=== PATIENT | male | born 1945 | race Caucasian/White ===

== ENCOUNTER → 2023-03-24 14:59 | Outpatient (REF) | payer MEDICARE, OTHER, SELFPAY | LOC: RAD 14:59 | PROVIDERS: ATTENDING PHYSICIAN Family Medicine | DX: I77.9 Disorder of arteries and arterioles, unspecified (principal); I65.22 Occlusion and stenosis of left carotid artery | CPT/HCPCS: 93880 ==

== ENCOUNTER → 2023-05-27 10:08 | Outpatient (REF) | payer MEDICARE, OTHER, SELFPAY ==
[2023-05-27 14:13] LABS: PSA, Total - Diagnostic 0.14 ng/ml (0.0-4.0)
== END ==
LOC: HWLAB 10:08
PROVIDERS: ATTENDING PHYSICIAN Urology; FAMILY PHYSICIAN Family Medicine
DX: C61 Malignant neoplasm of prostate (principal)
CPT/HCPCS: 36415; 84153

== ENCOUNTER → 2023-06-15 12:15 | Outpatient (REF) | payer MEDICARE, OTHER, SELFPAY | LOC: HWRAD 12:15 | PROVIDERS: ATTENDING PHYSICIAN Student in an Organized Health Care Education/Training Program | DX: R07.9 Chest pain, unspecified (principal) | CPT/HCPCS: 71046; 71120 ==

== ENCOUNTER 2023-07-22 16:27 | Emergency (ER) | payer MEDICARE, OTHER, SELFPAY ==
[2023-07-22] VITALS (8 sets, daily range): BP systolic 124–149; BP diastolic 77–89; PULSE 71–78; BMI 30.5
[2023-07-22 17:02] LABS: % Basophils 0.6 % (0-2); % Eosinophils 2.4 % (0-6); % Immature Granulocytes 0.1 % (0-0.5); % Lymphocytes 22.3 % (20.5-51.1); % Monocytes 9.7 % (1.7-9.3); % Neutrophils 64.9 % (42.2-75.2); Absolute Eosinophils 0.2 10^3/uL (0-0.7); Absolute Lymphocytes 1.6 10^3/uL (1.2-3.4); Absolute Monocytes 0.7 10^3/uL (0.1-0.6); Absolute Neutrophils 4.6 10^3/uL (1.4-6.5); Hematocrit 46.6 % (39.0-52.0); Hemoglobin 16.1 g/dL (13.0-18.0); Mean Corp Hgb Conc. 34.5 g/dL (33.0-37.0); Mean Corpuscular Volume 95.5 fL (80.0-94.0); Mean Platelet Volume 9.3 fL (7.4-10.4); Nucleated Red Blood Cells % 0 % (-); Platelet Count 240 10^3/uL (130-400); Red Blood Cell Count 4.88 10^6/uL (4.70-6.10); Red Cell Dist. Width 12.3 % (11.5-14.5); White Blood Cell Count 7.1 10^3/uL (4.8-10.8)
[2023-07-22 17:15] LABS: ALT (SGPT) 19 U/L (0-50); AST (SGOT) 22 U/L (17-59); Albumin 4.2 g/dl (3.5-5.0); Alkaline Phosphatase 90 U/L (38-126); Blood Urea Nitrogen 17 mg/dl (9-20); Calcium 9.3 mg/dl (8.4-10.2); Carbon Dioxide 28 mmol/L (22-30); Chloride 104 mmol/L (98-107); Glucose 93 mg/dl (70-99); Potassium 4.8 mmol/L (3.5-5.1); Sodium 139 mmol/L (135-145); Total Bilirubin 0.6 mg/dl (0.2-1.3); Total Protein 6.7 g/dl (6.3-8.2); eGFR > 60.00
--- NOTE | 2023-07-22 18:33 | ED.GENMED ---
History of Present Illness
General
Chief Complaint: Dizziness
Source: patient and spouse
Exam Limitations: none
Time Seen by Provider: 07/22/23 18:22
Nursing documentation reviewed up to this point in time: agreed with
Travel History
Have you had any contact with someone who has COVID-19?: No
Do you have any symptoms of coronavirus? Fever > 100 degrees, chills, cough, shortness of breath, sore throat, loss of taste or smell, muscle aches, or headache?: No
History of Present Illness
History of Present Illness:
Patient to ED with complaint of dizziness, fatigue, loss of appetite. Symptoms started 2 weeks ago. 1 week ago he fell from standing position. states his symptoms have been worse since. He is unsure if he hit his head. Denies fever/chills,
n/v/d. No cp/pressure, SOB, cough. No abdomnal pain. Denies headache, blurred vision. states she called PCP this AM and was referred to ED.
Past History
Past History
ED Past Medical History: HTN, Hypercholesterolemia and Psychiatric (PTSD)
ED Past Surgical History: Orthopedic (knee surgery) and Urological (Prostatectomy)
Social History
Tobacco: Non-smoker
Alcohol: None
Personal:
Living: with family
Review of Systems
Review of Systems
Allergies reviewed?: Yes
All Other Systems: ROS reviewed and negative except as documented in HPI and ROS
Constitutional: Reports fatigue
EENT: Reports no symptoms
Respiratory: Reports no symptoms
Cardiac: Reports no symptoms
ABD/GI: Reports anorexia
: Reports no symptoms
Musculoskeletal: Reports no symptoms
Skin: Reports no symptoms
Neurological: Reports dizzy and weakness
Psychiatric: Reports no symptoms
Phy Exam
General Physical Exam
General Presentation: well appearing and no apparent distress
General age: appears stated age
General Skin: warm and dry
General Habitus: normal
General Mental: alert
Cardiovascular Exam
Cardiovascular Exam: regular rate/rhythm and no edema
Pulmonary Exam
Pulmonary Exam: lungs clear and no respiratory distress
Gastrointestinal Exam
Gastrointestinal Exam: non tender, soft and no organomegaly
Neurological Exam
Neurological Exam: alert, oriented x3, CN II-XII intact, no motor deficits, no sensory deficits and speech normal
Musculoskeletal Exam
Musculoskeletal Exam: full ROM and neuro vasc intact
Skin Exam
Skin Exam: normal color, warm/dry and no rash
Psychiatric Exam
Psychiatric Exam: normal mood/affect
Course
Orders/Labs/Results
Orders:
Orders
07/22/23 16:39
Electrocardiogram (*1) Urgent
Reason for Study: Vertigo / Dizzy
07/22/23 16:40
EKG- Treatment ONCE
07/22/23 16:54
Complete Blood Count/With Diff Urgent
Comprehensive Metabolic Panel Urgent
07/22/23 18:33
CT Head W/o Iv Contrast Urgent
Comment:
Reason For Exam: confusion
Orthostatic VS- Treatment ONCE
07/22/23 18:35
Troponin I Urgent
07/22/23 19:10
Urinalysis Reflex To Culture Urgent
Date Specimen was Collected: 07/22/23
Time Specimen was Collected: 18:38
Abnormal Lab Results
07/22/23 07/22/23
16:54 19:10
MCV 95.5 H fL
(80.0-94.0)
MCH 33.0 H pg
(27.0-31.0)
Absolute Monos (auto) 0.7 H 10^3/uL
(0.1-0.6)
Monocytes % 9.7 H %
(1.7-9.3)
Urine Ketones Trace A
(Negative)
Urine Bilirubin 1+ A
(Negative)
07/22/23 16:54
07/22/23 16:54
Vital Signs
Initial and Last Documented VS:
Initial Vital Signs
Temp Pulse Resp BP Pulse Ox
98.4 F 77 18 127/77 94
07/22/23 16:37 07/22/23 16:37 07/22/23 16:37 07/22/23 16:37 07/22/23 16:37
Last Documented Vital Signs
Temp Pulse Resp BP Pulse Ox
98.4 F 77 18 135/82 94
07/22/23 16:37 07/22/23 16:37 07/22/23 16:37 07/22/23 20:00 07/22/23 20:15
*Radiology
Radiology exam reviewed: radiology read reviewed
*Pulse Oximetry
Patient hypoxic: no
*Critical Care Note
Total Time (30-74mins, 75-104mins- exclusive of procedures): Not Applicable
Update Note
Update Note:
Labs, CT discussed with patient and . No concerning findings on exam Ambulating with walker safely. WIll discharge home and he will follow up with PCP. States he is feeling hungry. Given instructions on s/s to return to ED and he is
agreeable to plan.
ED Attending Note
-
Portions of this chart may have been created with voice recognition software.� Occasional wrong word or��sound alike� substitutions may have occurred due to the inherent limitations of voice recognition software.
Discharge Plan
Departure
Patient Disposition: Home (Routine Discharge)
Date of Disposition: 07/22/23
Time of Disposition: 20:55
Patient with high blood pressure during this ER visit?: No
Condition: Good
Covid-19: Not Applicable
Discharge Problem:
Dizziness
Instructions: Dizziness
Referrals:
Kendra Allison, [Family Provider] - Follow up in 2-3 days
Activity Restrictions/Additional Instructions:
Please use your walker.
Interventions
Interventions:
*Risk Screen - Suicide Last Done: 07/22/23 18:18
*General Assessment Last Done: 07/22/23 18:18
*Neglect/Abuse Screening Last Done: 07/22/23 18:18
ED- Fall Risk Assessment Last Done: 07/22/23 18:18
*ED COVID-19 Vaccine History Last Done: 07/22/23 18:18
ED- Neurological Assessment Last Done: 07/22/23 18:18
ED- Cardiac Assessment Last Done: 07/22/23 18:18
ED Swallowing Screen Last Done: 07/22/23 20:48
Discharge Date and Time
Print Language: NORWEGIAN
[2023-07-22 19:05] LABS: Troponin I < 0.012 ng/ml
[2023-07-22 19:18] LABS: Urine Albumin Trace (Neg - Trace); Urine Bilirubin 1+ (Negative); Urine Character Clear (Clear); Urine Color Amber; Urine Glucose Negative (Negative); Urine Ketone Trace (Negative); Urine Leukocyte Negative (Negative); Urine Nitrite Negative (Negative); Urine Occult Blood Negative (Negative); Urine Specific Gravity 1.025 (<1.030); Urine Urobilinogen Negative (Neg - 1+)
== END 2023-07-22 21:07 | disposition home or self-care (01) ==
LOC: EMR 16:27
PROVIDERS: Emergency Medicine; Nurse Practitioner; EMERGENCY PHYSICIAN Emergency Medicine; FAMILY PHYSICIAN Family Medicine
DX: R42 Dizziness and giddiness (principal)
CPT/HCPCS: 99285; 70450; 80053; 81003; 84484; 85025; 93005

== ENCOUNTER 2023-08-09 17:43 | Observation (INO) | payer MEDICARE, OTHER, SELFPAY ==
[2023-08-09] VITALS (13 sets, daily range): BP systolic 113–153; BP diastolic 66–89; BMI 29.7
--- NOTE | 2023-08-09 10:35 | ED.GENMED ---
History of Present Illness
General
Chief Complaint: Fall
Source: patient and spouse
Exam Limitations: none
Time Seen by Provider: 08/09/23 10:19
Nursing documentation reviewed up to this point in time: agreed with
Travel History
Have you had any contact with someone who has COVID-19?: No
Do you have any symptoms of coronavirus? Fever > 100 degrees, chills, cough, shortness of breath, sore throat, loss of taste or smell, muscle aches, or headache?: No
History of Present Illness
History of Present Illness:
Patient is a 78-year-old male with history of dementia hypertension PTSD depression brought by for evaluation. reports patient has a history of frontal lobe dementia and she has noticed over the past couple weeks that he is shaky more
rigid more confused. He fell in the driveway on Tuesday and was assisted up by neighbors. She reports last night she heard him fall while she was upstairs and he was downstairs. She did not see this fall. He was on the floor she did assist him
up. She reports he is complaining of pain to the left buttocks and left thigh area. She reports he is not able to really get around now and walk up steps because the pain in general is getting more confused more shaky.
She does not feel that she can take at home.
She is unsure if he hit his head because she did not when this fall. He is on blood thinners. [facility] but she is looking for more local neurologist.
Past History
Past History
ED Past Medical History: HTN, Hypercholesterolemia and Psychiatric (PTSD)
ED Past Surgical History: Orthopedic (knee surgery) and Urological (Prostatectomy)
Social History
Tobacco: Non-smoker
Alcohol: None
Personal:
Living: with family
Review of Systems
Review of Systems
Allergies reviewed?: Yes
Other source history: family
All Other Systems: ROS reviewed and negative except as documented in HPI and ROS
Constitutional: Reports no symptoms; Denies fever, fatigue or chills
Respiratory: Reports no symptoms
Cardiac: Reports no symptoms
ABD/GI: Reports no symptoms
Musculoskeletal: Reports other (left thigh /hip pain)
Skin: Reports no symptoms
Neurological: Reports no symptoms
Psychiatric: Reports no symptoms
Phy Exam
General Physical Exam
General Presentation: no apparent distress
General age: appears stated age
General Skin: warm and dry
General Habitus: normal
General Mental: alert
General Hydration: appears well hydrated
Cardiovascular Exam
Cardiovascular Exam: regular rate/rhythm, no murmur and normal peripheral pulses
Pulmonary Exam
Pulmonary Exam: lungs clear and no respiratory distress
Neurological Exam
Neurological Exam: alert and oriented x3
Musculoskeletal Exam
Musculoskeletal Exam: full ROM and other (Normal inspection of bilateral extremities full range of motion to left hip no swelling or redness no bruising no obvious tender on exam no bony cervical tenderness)
Skin Exam
Skin Exam: normal color and warm/dry
Psychiatric Exam
Psychiatric Exam: normal mood/affect
Course
Orders/Labs/Results
Orders:
Orders
08/09/23 10:30
Hip, Left 2-3 Views [CR Hip - LT w/wo Pel 2-3 Vw*] Urgent
Comment:
Reason For Exam: trauma pain
Include a pelvis x-ray?: Yes
08/09/23 10:32
CT Head W/o Iv Contrast Urgent
Comment:
Reason For Exam: trauma
08/09/23 10:38
Complete Blood Count/With Diff Urgent
Comprehensive Metabolic Panel Urgent
08/09/23 12:07
CT Pelvis W/o Iv Contrast Urgent
Comment:
Reason For Exam: trauma left hip pain rule out pelvic fx
08/09/23 12:47
Urinalysis Reflex To Culture Urgent
Date Specimen was Collected: 08/09/23
Time Specimen was Collected: 12:45
Urine Microscopic Reflex Cult Urgent
08/09/23 13:36
Electrocardiogram (*1) Stat
Reason for Study: Other
Other Reason for Exam: chest pain
EKG- Treatment ONCE
Abnormal Lab Results
08/09/23 08/09/23
10:38 12:47
MCH 32.2 H pg
(27.0-31.0)
Absolute Lymphs (auto) 1.1 L 10^3/uL
(1.2-3.4)
Absolute Monos (auto) 0.7 H 10^3/uL
(0.1-0.6)
Lymphocytes % 14.4 L %
(20.5-51.1)
Monocytes % 9.5 H %
(1.7-9.3)
Urine Bilirubin 1+ A
(Negative)
Leukocyte Esterase Rfl Trace A
(Negative)
08/09/23 10:38
08/09/23 10:38
Vital Signs
Initial and Last Documented VS:
Initial Vital Signs
Temp Pulse Resp BP Pulse Ox
97.4 F 79 20 129/73 95
08/09/23 10:13 08/09/23 10:13 08/09/23 10:13 08/09/23 10:13 08/09/23 10:13
Last Documented Vital Signs
Temp Pulse Resp BP Pulse Ox
97.4 F 79 20 116/66 93
08/09/23 10:13 08/09/23 10:13 08/09/23 10:13 08/09/23 14:00 08/09/23 14:15
MDM/Problems Addressed
Differential Diagnosis Includes:
Not limited to hip fracture pelvis fracture weakness, dehydration anemia UTI
MDM/Problems Addressed:
Patient is a 78-year-old male normally seen and treated by the NH with history dementia brought by for evaluation of increasing weakness frequent falls. Patient's reports patient is very shaky no diagnosis of Parkinson's however she was
looking for more local neurologist to further evaluate his shakiness. He is very unsteady and unable to get around at home now. She is not able to care for him because of this. She reports he can barely walk. He fell and complains of left hip
pain. No obvious findings on CAT scan or x-ray. No obvious head injury however with dementia CAT scan was done and negative. He is not on blood thinners. Will admit for further evaluation and workup for weakness and shakiness possible neuro eval
and PT . may need placement.
Chronic conditions affecting care:
Dementia
*Radiology
Radiology exam reviewed: radiology read reviewed
*Pulse Oximetry
Patient hypoxic: no
*Critical Care Note
Total Time (30-74mins, 75-104mins- exclusive of procedures): Not Applicable
ED Attending Note
-
Portions of this chart may have been created with voice recognition software.� Occasional wrong word or��sound alike� substitutions may have occurred due to the inherent limitations of voice recognition software.
Discharge Plan
Departure
Patient Disposition: Admit
Date of Disposition: 08/09/23
Time of Disposition: 13:45
Admit to: Med/Surg
Admit to doctor: hosptialist
Presentation/result/management discussed w/ accepting MD/DO: Hospitalist
Patient with high blood pressure during this ER visit?: No
Condition: Fair
Covid-19: Not Applicable
Discharge Problem:
Ambulatory dysfunction
Prescriptions:
No Action
atorvastatin 10 mg tablet
10 mg PO DAILY
bupropion HCl [Wellbutrin SR] 150 mg Tablet Sustained-Release 12 Hr
450 mg PO DAILY
trazodone 50 mg Tablet
150 mg PO HS
cyanocobalamin (vitamin B-12) 1,000 mcg Tablet
1,000 mcg PO DAILY
valsartan 320 mg Tablet
160 mg PO DAILY
duloxetine [Cymbalta] 60 mg Capsule,Delayed Release(Dr/Ec)
60 mg PO DAILY
Referrals:
Dc Messina CRNP [Family Provider] -
Interventions
Interventions:
*Risk Screen - Suicide Last Done: 08/09/23 10:13
*General Assessment Last Done: 08/09/23 10:13
*Neglect/Abuse Screening Last Done: 08/09/23 10:13
ED- Fall Risk Assessment Last Done: 08/09/23 10:37
*ED COVID-19 Vaccine History Last Done: 08/09/23 10:36
ED-Musculoskeletal Assessment Last Done: 08/09/23 10:36
ED- Neurological Assessment Last Done: 08/09/23 10:36
ED-Skin Assessment Last Done: 08/09/23 10:36
Discharge Date and Time
Print Language: DUTCH
[2023-08-09 10:51] LABS: % Basophils 0.5 % (0-2); % Eosinophils 1.4 % (0-6); % Immature Granulocytes 0.3 % (0-0.5); % Lymphocytes 14.4 % (20.5-51.1); % Monocytes 9.5 % (1.7-9.3); % Neutrophils 73.9 % (42.2-75.2); Absolute Eosinophils 0.1 10^3/uL (0-0.7); Absolute Lymphocytes 1.1 10^3/uL (1.2-3.4); Absolute Monocytes 0.7 10^3/uL (0.1-0.6); Absolute Neutrophils 5.7 10^3/uL (1.4-6.5); Hematocrit 45.1 % (39.0-52.0); Hemoglobin 15.5 g/dL (13.0-18.0); Mean Corp Hgb Conc. 34.4 g/dL (33.0-37.0); Mean Corpuscular Hgb 32.2 pg (27.0-31.0); Mean Corpuscular Volume 93.6 fL (80.0-94.0); Mean Platelet Volume 9.7 fL (7.4-10.4); Nucleated Red Blood Cells % 0 % (-); Platelet Count 236 10^3/uL (130-400); Red Blood Cell Count 4.82 10^6/uL (4.70-6.10); Red Cell Dist. Width 12.3 % (11.5-14.5); White Blood Cell Count 7.7 10^3/uL (4.8-10.8)
[2023-08-09 11:01] LABS: ALT (SGPT) 22 U/L (0-50); AST (SGOT) 23 U/L (17-59); Albumin 4.1 g/dl (3.5-5.0); Alkaline Phosphatase 87 U/L (38-126); Blood Urea Nitrogen 17 mg/dl (9-20); Calcium 9.3 mg/dl (8.4-10.2); Carbon Dioxide 28 mmol/L (22-30); Chloride 105 mmol/L (98-107); Glucose 99 mg/dl (70-99); Potassium 4.6 mmol/L (3.5-5.1); Sodium 140 mmol/L (135-145); Total Bilirubin 0.9 mg/dl (0.2-1.3); Total Protein 6.7 g/dl (6.3-8.2); eGFR > 60.00
[2023-08-09 13:00] LABS: Urine Albumin Trace (Neg - Trace); Urine Bilirubin 1+ (Negative); Urine Character Clear (Clear); Urine Color Yellow; Urine Glucose Negative (Negative); Urine Ketone Negative (Negative); Urine Leukocyte Trace (Negative); Urine Nitrite Negative (Negative); Urine Occult Blood Negative (Negative); Urine Specific Gravity 1.015 (<1.030); Urine Urobilinogen 1+ (Neg - 1+)
[2023-08-09 14:01] LABS: Urine Mucus Moderate
[2023-08-09 14:02] LABS: Urine Amorphous Seen; Urine Red Blood Cell 0-2 /HPF (0-2); Urine Squamous Cell 0-2 /LPF (Few); Urine White Cell 0-2 /HPF (0-5)
--- NOTE | 2023-08-09 14:29 | HPS.HSE ---
Addendum entered and electronically signed by Simley Brown MD 08/09/23 20:04:
Patient seen and examined independently--agree with plan set forth by Dr. Bella
GENERAL: well developed, well nourished, male in no apparent distress
HEENT: NC/AT--no O2 requirements
HEART: regular rate and rhythm, +S1, +S2
LUNGS : clear to auscultation bilaterally
ABDOM: soft, nontender, nondistended, + bowel sounds
EXT: no cyanosis, clubbing, or edema--NO pain to palpation over left hip bursa or low back
NEUROLOGIC: apparent dementia
Ambulatory dysfunction/falls with Chronic and worsening left leg pain/stiffness--unclear cause--OBS--standing tylenol for pain control--CT pelvis and hip x-ray without fractures--head CT without acute findings (positive for moderate diffuse cortical
and cerebellar atrophy)--check for infection, reversible causes (TSH, B12, folate, cultures)--PT/OT--brain MRI--neuro consult
Essential HTN -- cont valsartan
HLD --cont atorvastatin
PTSD --cont cymbalta/trazadone
B12 deficiency--cont B12 repletion
DVT prophylaxis
CODE STATUS -- DNR
DVT prophylaxis: SCD
CODE STATUS: DNR
Original Note:
Family Physician
-
Family Physician: BRITTANY Zimmer
Chief Complaint
-
Frequent falls
History of Present Illness
This is a 78-year-old male with past medical history of frontotemporal neurocognitive disorder, PTSD, mixed hyperlipidemia, essential hypertension, prostate cancer s/p prostatectomy with no radiations, who presented to ED with his on bedside
complaining of multiple falls decided about 2 years ago. Patient has had multiple episodes of syncope and dizziness in the past 2 years with no identifiable source. The states that patient finds it difficult to stand from a sitting position
and sometimes have to sleep on the floor because he is unable to pick himself up. She stated that patient has fallen twice in the past week but denies any head trauma. Patient reports pain 10/10 on the lateral left thigh that does not radiate. He
also admits mild lower back pain. Patient denies chest pain, shortness of breath, palpitations, dizziness, fever, chills, palpitations, nausea, and vomiting.
Medical History
Past Medical History
Past Medical History: Reports Dementia, HTN, Hypercholesterolemia and Psychiatric; Denies Arrhythmia
Additional Past Medical History:
Vitamin B12 deficiency, PTSD, anxiety
Past Surgical History: Reports None
Social History
Tobacco: Non-smoker
Alcohol: None
Drug: None
Personal:
Living: With Family
Employment: Retired ([employer])
Family History
Family History: Other (Mother had Alzheimer's disease)
Allergies / Home Medications
Allergies reflects when Allergies were last updated in [email or web address].
Home Medications with original date entered in [email or web address]
Allergy/Medication List:
Allergies
Allergy/AdvReac Type Severity Reaction Status Date / Time
No Known Allergies Allergy Verified 08/09/23 10:16
Review of Systems
-
History Source: Patient and Family
A 12 point ROS was completed and negative except as noted: No
Constitutional: Reports No Symptoms; Denies Fever or Fatigue
EENT: Reports No Symptoms
Respiratory: Reports No Symptoms; Denies Cough or Trouble Breathing
Cardiac: Reports No Symptoms; Denies Chest Pain, Palpitations or Syncope
Abdomen/GI: Reports No Symptoms; Denies Abdominal Pain, Nausea, Vomiting or Constipated
: Reports No Symptoms
Musculoskeletal: Reports No Symptoms
Skin: Reports No Symptoms
Endocrine: Reports No Symptoms
Psych: Reports Calm
Physical Exam
Vital Signs
Vital Signs
Temp Pulse Resp BP Pulse Ox
97.4 F 79 20 116/66 93
08/09/23 10:13 06/18/24 10:13 08/09/23 10:13 08/09/23 14:00 08/09/23 14:15
Physical Exam
General: No Apparent Distress, Comfortable and Conversant; No Respiratory Distress
HEENT: NormoCephalic and Moist mucous membranes
Respiratory: Clear and Non Labored Respirations; No Wheezes, Rales or Crackles
Cardiac: S1/S2 and Regular Rhythm; No Murmur, Rub or Peripheral Edema
GI: Soft, Non Distended and Normal Bowel Sounds
Skin: Warm
Neuro: Awake, Alert, Oriented, AO x 3 and Nonfocal/grossly intact
Psych: Calm, Intact Judgment/Insight and Other (Mildly forgetful)
Laboratory Results
-
08/09/23 10:38
08/09/23 10:38
Laboratory Results
Total Bilirubin 0.9 mg/dl (0.2-1.3) 08/09/23 10:38
AST 23 U/L (17-59) 08/09/23 10:38
ALT 22 U/L (0-50) 08/09/23 10:38
Alkaline Phosphatase 87 U/L (38-126) 08/09/23 10:38
Data Reviewed
-
Lab Data: Labs Reviewed by me and Discussed with Physician
Old Records: Reviewed
Impression/Plan
-
IMPRESSION:
This is a 78-year-old male with past medical history of frontotemporal neurocognitive disorder who was admitted for observation due to multiple falls. Recent fall was 2 days ago, reports no head trauma. Reports left leg pain and inability to raise
leg while ambulating
PLAN:
Ambulatory dysfunction:
-Admit to observation floor.
-Chronic and worsening left leg pain/stiffness.
-Neuro exam unremarkable.
-Mild left leg stiffness/weakness compared to right.
-No pain elicited on palpation of left trochanter, trochanteric bursitis less likely.
-TSH.
-Urinalysis.
-PT/OT.
-Brain MRI with and without contrast.
DVT prophylaxis: SCD
CODE STATUS: DNR
--- NOTE | 2023-08-09 16:38 | CM ---
Patient seen at bedside with physician. Patient lives with , not present and has a diagnosis of dementia. Patient states he is a [employer] and [facility] Mess[facility]. Patient is driving and complaining of frequent falls.
Patient to be admitted as an OBS/SHI patient. CM will review with patient status and form. Patient previously used the [facility] in [place]. CM will continue to follow for discharge planning needs.
PLan; home with VN vs SNF
[2023-08-09] MEDS: TYLENOL 650 MG PO (21:00)
[2023-08-09] MEDS: DESYREL 150 MG PO (21:01)
[2023-08-10] MEDS: TYLENOL 650 MG PO ×4 (03:32→21:37)
--- NOTE | 2023-08-10 03:48 | DOWNTIME ---
There was a [employer] Downtime on 08/10/2023 from 0100 to 08/10/2023 at 0337. Downtime documentation of patient's care, including medication administrations, has been reconciled in the electronic record per guidelines. Refer to the
patient's paper chart under the miscellaneous tab to see printed paper medication records and downtime forms.
[2023-08-10 06:39] LABS: Urine Albumin Negative (Neg - Trace); Urine Bilirubin Negative (Negative); Urine Character Clear (Clear); Urine Color Yellow; Urine Glucose Negative (Negative); Urine Ketone Negative (Negative); Urine Leukocyte Negative (Negative); Urine Nitrite Negative (Negative); Urine Occult Blood Negative (Negative); Urine Urobilinogen Negative (Neg - 1+)
[2023-08-10 07:00] VITALS: BP 113/68
[2023-08-10 07:04] LABS: % Basophils 0.5 % (0-2); % Eosinophils 3.3 % (0-6); % Immature Granulocytes 0.3 % (0-0.5); % Lymphocytes 26.6 % (20.5-51.1); % Monocytes 10.9 % (1.7-9.3); % Neutrophils 58.4 % (42.2-75.2); Absolute Eosinophils 0.2 10^3/uL (0-0.7); Absolute Lymphocytes 1.6 10^3/uL (1.2-3.4); Absolute Monocytes 0.7 10^3/uL (0.1-0.6); Absolute Neutrophils 3.6 10^3/uL (1.4-6.5); Hematocrit 41.6 % (39.0-52.0); Hemoglobin 14.1 g/dL (13.0-18.0); Mean Corp Hgb Conc. 33.9 g/dL (33.0-37.0); Mean Corpuscular Hgb 32.2 pg (27.0-31.0); Mean Platelet Volume 9.7 fL (7.4-10.4); Nucleated Red Blood Cells % 0 % (-); Platelet Count 213 10^3/uL (130-400); Red Blood Cell Count 4.38 10^6/uL (4.70-6.10); Red Cell Dist. Width 12.3 % (11.5-14.5); White Blood Cell Count 6.1 10^3/uL (4.8-10.8)
[2023-08-10 07:54] LABS: TSH Reflex To Free T4 1.82 uIU/ml (0.47-4.68)
[2023-08-10] MEDS: WELLBUTRIN SR (12 hour sustained release) 450 MG PO (09:06)
[2023-08-10] MEDS: LIPITOR 10 MG PO (09:06)
[2023-08-10] MEDS: DIOVAN 160 MG PO (09:07)
[2023-08-10] MEDS: VITAMIN B-12 1000 MCG PO (09:07)
[2023-08-10] MEDS: CYMBALTA DELAYED RELEASE 60 MG PO (09:07)
--- NOTE | 2023-08-10 09:20 | W.PN.HOSP.TC ---
Addendum entered and electronically signed by Smiley Brown MD 08/10/23 19:56:
Patient seen and examined independently--agree with plan set forth by Dr. Bella
GENERAL: well developed, well nourished, male in no apparent distress
HEENT: NC/AT--no O2 requirements
HEART: regular rate and rhythm, +S1, +S2
LUNGS : clear to auscultation bilaterally
ABDOM: soft, nontender, nondistended, + bowel sounds
EXT: no cyanosis, clubbing, or edema--NO pain to palpation over left hip bursa or low back
NEUROLOGIC: apparent dementia
Ambulatory dysfunction/falls with Chronic and worsening left leg pain/stiffness--unclear cause--standing tylenol for pain control not helping, will add standing motrin every 8 hours to alternate with tylenol--if no improvement, consider short
tapering steroid course--CT pelvis and hip x-ray without fractures--head CT without acute findings (positive for moderate diffuse cortical and cerebellar atrophy), brain MRI without acute findings but possibility of NPH raised--apprec neurology--
TSH, B12, folate all WNL--PT/OT--urinalysis clean, blood cultures pending
Essential HTN -- cont valsartan
HLD --cont atorvastatin
PTSD --cont cymbalta/trazadone
B12 deficiency--cont B12 repletion
DVT prophylaxis
CODE STATUS -- DNR
Spoke at length with patient's via phone, she is concerned that she is unable to take care of him at home and is thinking he may need a rehab--will discuss possible options with case management
Original Note:
Today's Communication/Plan
-
PT/OT with steps
Pain control
Assessment / Plan
Assessment / Plan
Assessment: Patient is a 78-year-old male with past medical history of frontotemporal dementia admitted for multiple falls.
Ambulatory dysfunction:
-Presentation with mostly left leg pain/stiffness of unclear cause, most likely muscle sprain.
-Pelvic CT 08/09/2023 with degenerative disease of L4-5 but no osseous abnormalities
-Head CT 08/09/2023 with no acute findings.
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
-Lumbar spine MRI 08/10/2023 reports no abnormal enhancement.
-Pain control with alternating Tylenol and Motrin.
-Neuro exam unremarkable, no evidence of parkinsonism, peripheral neuropathy.
-No pain elicited on palpation of left trochanter, trochanteric bursitis less likely.
-TSH WNL.
-Blood cultures
-Neuro following, recs appreciated.
-Urinalysis with cultures.
-PT/OT with steps.
DVT prophylaxis: SCD
CODE STATUS: DNR
Anticipated Discharge: 24 - 48 hours
Subjective/Interval History
-
Date of Service: August 10, 2023
Objective Data
-
Labs:
Laboratory Results
08/10/23
06:18
WBC 6.1
Hgb 14.1
Hct 41.6
Plt Count 213
Vital Signs:
Vital Signs
Temp Pulse Resp BP Pulse Ox
97.6 F 67 18 113/68 93
08/10/23 07:00 08/10/23 07:00 08/10/23 07:00 08/10/23 07:00 08/10/23 07:00
I&O
08/09/23 08/10/23 08/11/23
06:59 06:59 06:59
Intake Total 120 / 120
Output Total 600 / 600
Balance -480 / -480
Review of Systems
-
History Source: Patient
All other systems: Not reviewed unless documented
Constitutional: Reports No Symptoms; Denies Fever
EENT: Reports No Symptoms Reported
Respiratory: Reports No Symptoms; Denies Cough, Trouble Breathing or Wheezing
Cardiac: Reports No Symptoms; Denies Palpitations or Syncope
Abdomen/GI: Reports No Symptoms; Denies Abdominal Pain, Nausea, Vomiting or Diarrhea
Genitourinary: Reports No Symptoms
Musculoskeletal: Reports Muscle Pain; Denies Joint Pain, Edema or Muscle Weakness
Neuro: Reports No Symptoms; Denies Dizzy, Headache, Weakness or Ataxia
Physical Exam
-
General: Well Developed, No Apparent Distress and Comfortable
HEENT: Normocephalic, Atraumatic and Moist Mucous Membranes
Respiratory: Clear to Auscultation; Negative Wheezes, Rhonchi or Crackles
Cardiac: Regular Rhythm and S1/S2; Negative Murmur, Rub or Gallop
GI: Soft, Nontender, Nondistended and Normal Bowel Sounds; Negative Organomegaly
Rectal: Deferred by Provider
Musculoskeletal: No Clubbing, No Cyanosis, No Edema and Other (Left lateral thigh pain)
Skin: Warm; Negative Rash
Neuro: Awake, Alert, Oriented, AO x 3 and Nonfocal/Grossly Intact
Psych: Calm
Data Reviewed
-
CT Scan: Report Reviewed by me and Discussed with Physician
MRI: Report Reviewed by me, Discussed with Physician and Other (Brain and lumbar spine MRI)
Labs: Labs Reviewed by me and Discussed with Physician
Old Records: Reviewed
--- NOTE | 2023-08-10 09:41 | CM ---
Patient seen at bedside. CM called to patient and reviewed OBS/SHI form. Patient left on bedside table. Patient stated that patient has had a change in ability to do tasks like getting in bed or walking up steps. Patient states that
when patient doing steps he is unable to put weight on his leg. Patient does not have any DME at home. Patient lives in a 3 story home with bedroom on the 3rd floor. 2 steps to go anywhere. Patient indicated that she had not thought about
next steps. Patient 's plan is for discharge home. CM will continue to follow for discharge planning needs.
Plan; home with VN vs SNF; pending assessment
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
[2023-08-10 10:26] VITALS: BP 134/79; BP 139/81; BP 147/86; PULSE 79; PULSE 83
[2023-08-10 10:29] VITALS: BP 134/79; BP 139/81; BP 147/86; PULSE 79; PULSE 83
[2023-08-10 11:11] LABS: Blood Urea Nitrogen 21 mg/dl (9-20); Calcium 9.1 mg/dl (8.4-10.2); Carbon Dioxide 24 mmol/L (22-30); Chloride 107 mmol/L (98-107); Estimated Creatinine Clearance 54 ml/min; Glucose 134 mg/dl (70-99); Potassium 4.4 mmol/L (3.5-5.1); Sodium 140 mmol/L (135-145); eGFR > 60.00
[2023-08-10 12:15] LABS: Folate 8.1 ng/ml (2.76-20); Vitamin B12 819 pg/ml (239-931)
[2023-08-10 15:00] VITALS: BP 126/76; BP 133/84; BP 139/79; PULSE 76; PULSE 78; PULSE 79
[2023-08-10] MEDS: DESYREL 150 MG PO (21:38)
[2023-08-10 23:00] VITALS: BP 114/58
[2023-08-11 03:00] VITALS: BP 106/64; BP 116/67; BP 120/66; PULSE 71; PULSE 74; PULSE 78
[2023-08-11] MEDS: TYLENOL PO (03:00)
[2023-08-11 07:00] VITALS: BP 112/78
--- NOTE | 2023-08-11 08:16 | W.PN.HOSP.TC ---
Addendum entered and electronically signed by Smiley Brown MD 08/11/23 13:02:
Patient seen and examined independently--agree with plan set forth by Dr. Bella
GENERAL: well developed, well nourished, male in no apparent distress
HEENT: NC/AT--no O2 requirements
HEART: regular rate and rhythm, +S1, +S2
LUNGS : clear to auscultation bilaterally
ABDOM: soft, nontender, nondistended, + bowel sounds
EXT: no cyanosis, clubbing, or edema--NO pain to palpation over left hip bursa or low back
NEUROLOGIC: apparent dementia
Ambulatory dysfunction/falls with Chronic and worsening left leg pain/stiffness--unclear cause--standing tylenol/motrin for pain control--if no improvement, consider short tapering steroid course--CT pelvis and hip x-ray without fractures--head CT
without acute findings (positive for moderate diffuse cortical and cerebellar atrophy), brain MRI without acute findings but possibility of NPH raised--apprec neurology-- TSH, B12, folate all WNL--PT/OT--urinalysis clean, blood cultures NGTD
Essential HTN -- cont valsartan
HLD --cont atorvastatin
PTSD --cont cymbalta/trazadone
B12 deficiency--cont B12 repletion
DVT prophylaxis
CODE STATUS -- DNR
planning for d/c to SNF--pt evaluated by PT/OT and qualifies for SNF
Original Note:
Today's Communication/Plan
-
Continue PT/OT
Pain control
Discharge planning
Assessment / Plan
Assessment / Plan
Assessment: Patient is a 78-year-old male with past medical history of frontotemporal dementia admitted for multiple falls.
Ambulatory dysfunction:
-Presentation with mostly left leg pain/stiffness of unclear cause, most likely muscle sprain.
-Pelvic CT 08/09/2023 with degenerative disease of L4-5 but no osseous abnormalities
-Head CT 08/09/2023 with no acute findings.
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
-Lumbar spine MRI 08/10/2023 reports no abnormal enhancement.
-Pain control with alternating Tylenol and Motrin.
-Neuro exam unremarkable, no evidence of parkinsonism, peripheral neuropathy.
-No pain elicited on palpation of left trochanter, trochanteric bursitis less likely.
-TSH WNL.
-Blood cultures pending
-Neuro following, recs appreciated.
-Urinalysis clean.
-PT/OT with steps.
DVT prophylaxis: SCD
CODE STATUS: DNR
Anticipated Discharge: Today
Subjective/Interval History
-
Date of Service: August 11, 2023
Objective Data
-
Labs:
Laboratory Results
08/11/23
08:15
WBC Pending
Hgb Pending
Hct Pending
Plt Count Pending
Sodium Pending
Potassium Pending
Chloride Pending
Carbon Dioxide Pending
BUN Pending
Creatinine Pending
Glucose Pending
Calcium Pending
Vital Signs:
Vital Signs
Temp Pulse Resp BP Pulse Ox
97.7 F 72 16 112/78 94
08/11/23 07:00 08/11/23 07:00 08/11/23 07:00 08/11/23 07:00 08/11/23 07:00
I&O
08/10/23 08/11/23 08/12/23
06:59 06:59 06:59
Intake Total 120 / 120 300 / 300
Output Total 600 / 600 30 / 30
Balance -480 / -480 270 / 270
Review of Systems
-
History Source: Patient
All other systems: Not reviewed unless documented
Constitutional: Reports No Symptoms; Denies Fever
EENT: Reports No Symptoms Reported
Respiratory: Reports No Symptoms; Denies Cough, Trouble Breathing or Wheezing
Cardiac: Reports No Symptoms; Denies Palpitations or Syncope
Abdomen/GI: Reports No Symptoms; Denies Abdominal Pain, Nausea, Vomiting or Diarrhea
Genitourinary: Reports No Symptoms
Musculoskeletal: Reports Muscle Pain; Denies Joint Pain, Edema or Muscle Weakness
Neuro: Reports No Symptoms; Denies Dizzy, Headache, Weakness or Ataxia
Physical Exam
-
General: Well Developed, No Apparent Distress and Comfortable
HEENT: Normocephalic, Atraumatic and Moist Mucous Membranes
Respiratory: Clear to Auscultation; Negative Wheezes, Rhonchi or Crackles
Cardiac: Regular Rhythm and S1/S2; Negative Murmur, Rub or Gallop
GI: Soft, Nontender, Nondistended and Normal Bowel Sounds; Negative Organomegaly
Rectal: Deferred by Provider
Musculoskeletal: No Clubbing, No Cyanosis, No Edema and Other (Left lateral thigh pain)
Skin: Warm; Negative Rash
Neuro: Awake, Alert, Oriented, AO x 3 and Nonfocal/Grossly Intact
Psych: Calm
Data Reviewed
-
CT Scan: Report Reviewed by me and Discussed with Physician
MRI: Report Reviewed by me, Discussed with Physician and Other (Brain and lumbar spine MRI)
Labs: Labs Reviewed by me and Discussed with Physician
Old Records: Reviewed
[2023-08-11] MEDS: VITAMIN B-12 1000 MCG PO (08:26)
[2023-08-11] MEDS: WELLBUTRIN SR (12 hour sustained release) 450 MG PO (08:26)
[2023-08-11] MEDS: LIPITOR 10 MG PO (08:26)
[2023-08-11] MEDS: CYMBALTA DELAYED RELEASE 60 MG PO (08:27)
[2023-08-11] MEDS: DIOVAN 160 MG PO (08:27)
[2023-08-11] MEDS: TYLENOL 650 MG PO ×3 (08:27→21:07)
[2023-08-11 08:43] LABS: Hematocrit 42.5 % (39.0-52.0); Hemoglobin 14.5 g/dL (13.0-18.0); Mean Corp Hgb Conc. 34.1 g/dL (33.0-37.0); Mean Corpuscular Hgb 32.4 pg (27.0-31.0); Mean Corpuscular Volume 95.1 fL (80.0-94.0); Mean Platelet Volume 9.4 fL (7.4-10.4); Platelet Count 202 10^3/uL (130-400); Red Blood Cell Count 4.47 10^6/uL (4.70-6.10); Red Cell Dist. Width 12.4 % (11.5-14.5); White Blood Cell Count 5.9 10^3/uL (4.8-10.8)
[2023-08-11 08:56] LABS: Blood Urea Nitrogen 18 mg/dl (9-20); Calcium 8.6 mg/dl (8.4-10.2); Carbon Dioxide 28 mmol/L (22-30); Chloride 109 mmol/L (98-107); Estimated Creatinine Clearance 54 ml/min; Glucose 97 mg/dl (70-99); Sodium 142 mmol/L (135-145); eGFR > 60.00
[2023-08-11 09:25] LABS: Potassium 4.3 mmol/L (3.5-5.1)
--- NOTE | 2023-08-11 10:46 | W.PN.UPDATE ---
Addendum entered and electronically signed by Smiley Brown MD 08/11/23 13:04:
Patient seen and examined independently--agree with assessment as documented by Dr. Bella
Original Note:
Update Note
Progress Note Update
Pt has been assessed and qualifies for residential facility.
--- NOTE | 2023-08-11 12:46 | W.DCSUMMARY ---
Addendum entered and electronically signed by Smiley Brown MD 08/12/23 20:04:
actual discharge date was 08/12/23--discharge delayed due to available SNF bed
Addendum entered and electronically signed by Smiley Brown MD 08/11/23 14:38:
Fully read and agree with plan as set forth by Dr. Bella.
Nothing to add.
Original Note:
Discharge Summary
Discharge Data
Date of Admission: 08/09/23
Date of Discharge: 08/11/23
-
Pending Results: Yes
Additional Pending Results:
Blood cultures, urine cultures (no growth till date)
Hospital Course
Patient is a 78-year-old male with past medical history of presumed frontotemporal neurocognitive disorder, PTSD, mixed hyperlipidemia, essential hypertension, prostate cancers/p prostatectomy with no radiations, who presented to ED with his
on bedside complaining of multiple falls decided about 2 years ago. Patient and relays that this has been going on for more than 2 years and multiple workups has been done without any identifiable cause. He reports lateral thigh pain rated
10/10 does not radiate. While in the ED, patient received hip x-ray, head CT, and pelvic CT. His hip x-ray was remarkable for degenerative disc disease in the lower lumbar spine but no fractures or dislocations. Pelvic CT shows no acute osseous
abnormalities, but degenerative disc disease at L4-L5. His head CT showed no focal acute intracranial abnormalities, however, there is great diffuse cortical and cerebellar atrophy. Patient was then admitted to observation floor, and was treated
with pain medications.
While in the hospital, patient was seen in consultation with neurology, physical therapy and occasional therapy. Furthermore, patient received brain MRI, lumbar spine MRI. His brain MRI was remarkable for stable chronic lacunar infarct involving
right medial right thalamus but no intracranial abnormalities or acute infarcts. There was also stable moderate ventriculomegaly and some cortical atrophy. His lumbar spine MRI showed small protrusion and mild left narrowing of foramina in the
L1-L2 region, and a tiny posterior central disc protrusion at the L5-S1 region. However there is no significant central canal stenosis.
Patient was reassessed and certified appropriate for senior care facility. Patient is stable for discharge to SNF.
Discharge Plan
-
Patient Disposition: Fdc/SNF
Discharge Diagnosis/Procedures: Ambulatory dysfunction, worsening leg pain and stiffness,
Referrals:
Dc Messina CRNP [Family Provider] -
Prescriptions:
New
acetaminophen 325 mg Tablet
650 mg PO Q6H Qty: 0 0RF
ibuprofen 400 mg Tablet
400 mg PO Q8HPRN PRN (Reason: leg pain) Qty: 0 0RF
Continued
atorvastatin 10 mg tablet
10 mg PO DAILY
bupropion HCl [Wellbutrin SR] 150 mg Tablet Sustained-Release 12 Hr
450 mg PO DAILY
trazodone 50 mg Tablet
150 mg PO HS
cyanocobalamin (vitamin B-12) 1,000 mcg Tablet
1,000 mcg PO DAILY
valsartan 320 mg Tablet
160 mg PO DAILY
duloxetine [Cymbalta] 60 mg Capsule,Delayed Release(Dr/Ec)
60 mg PO DAILY
Discharge Orders:
Discharge Patient (As Directed); Ordered 08/11/23
Ordered By: Héctor Bella
Discharge Date and Time
Print Language: STATELESS
--- NOTE | 2023-08-11 14:11 | CM ---
Addendum entered by Joanna Yan 08/11/23 15:36:
no beds at [facility] or [facility]. [facility] accepted patient for waiver program pending bed. CM spoke with patient who requested CM send referrals to [facility] or [facility]. Physician updated and CM will continue to follow for
discharge planning needs.
Original Note:
Patient qualifies for [facility] waiver program. CM updated patient and reviewed OBS/SHI form. Patient referred to [facility] and [facility] the two local facilities that are accepting the waiver program following review of program with patient .
CM awaiting confirmation of bed availability at [facility] and will work with [facility] about auth. CM will continue to follow for discharge planning needs.
Plan; SNF
[2023-08-11 15:00] VITALS: BP 138/82
--- NOTE | 2023-08-11 15:42 | W.PN.UPDATE ---
Update Note
Progress Note Update
Spoke with case management who reports speaking with patient's who indicated that Patient neurologist stated the right diagnosis for patient is degenerative neurological disease with parkinsonism as opposed to frontotemporal neurocognitive
disorder previously reported.
[2023-08-11 19:07] LABS: Hepatitis C Antibody Negative (Negative)
[2023-08-11] MEDS: DESYREL 150 MG PO (21:08)
[2023-08-11 23:35] VITALS: BP 112/61
[2023-08-12] MEDS: TYLENOL PO (03:55)
[2023-08-12 07:00] VITALS: BP 106/62
--- NOTE | 2023-08-12 07:26 | W.PN.HOSP.TC ---
Addendum entered and electronically signed by Smiley Brown MD 08/12/23 20:03:
Patient seen and examined independently--agree with plan set forth by Dr. Bella
GENERAL: well developed, well nourished, male in no apparent distress
HEENT: NC/AT--no O2 requirements
HEART: regular rate and rhythm, +S1, +S2
LUNGS : clear to auscultation bilaterally
ABDOM: soft, nontender, nondistended, + bowel sounds
EXT: no cyanosis, clubbing, or edema--NO pain to palpation over left hip bursa or low back
NEUROLOGIC: apparent dementia
Ambulatory dysfunction/falls with Chronic and worsening left leg pain/stiffness--unclear cause--standing tylenol/motrin for pain control--if no improvement, consider short tapering steroid course--CT pelvis and hip x-ray without fractures--head CT
without acute findings (positive for moderate diffuse cortical and cerebellar atrophy), brain MRI without acute findings but possibility of NPH raised, not concerning per neuro--apprec neurology-- TSH, B12, folate all WNL--PT/OT--urinalysis clean,
blood cultures NGTD
Essential HTN -- cont valsartan
HLD --cont atorvastatin
PTSD --cont cymbalta/trazadone
B12 deficiency--cont B12 repletion
DVT prophylaxis
CODE STATUS -- DNR
d/c to SNF
Original Note:
Today's Communication/Plan
-
Pain control
Discharge to SNF
Assessment / Plan
Assessment / Plan
Assessment: Patient is a 78-year-old male with past medical history of frontotemporal dementia admitted for multiple falls.
Ambulatory dysfunction:
-Presentation with mostly left leg pain/stiffness of unclear cause, most likely muscle sprain.
-Pelvic CT 08/09/2023 with degenerative disease of L4-5 but no osseous abnormalities
-Head CT 08/09/2023 with no acute findings.
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
-Although patient has gait issues, ventricular size and angles does not meet criteria for NPH by neurology.
-Lumbar spine MRI 08/10/2023 reports no abnormal enhancement.
-Pain control with alternating Tylenol and Motrin.
-Neuro exam unremarkable, no evidence of parkinsonism, peripheral neuropathy.
-No pain elicited on palpation of left trochanter, trochanteric bursitis less likely.
-TSH WNL.
-Blood cultures pending
-Neuro following, recs appreciated.
-Urinalysis clean.
-PT/OT with steps.
-Discharge to SNF patient agreeable.
DVT prophylaxis: SCD
CODE STATUS: DNR
Anticipated Discharge: Today
Subjective/Interval History
-
Date of Service: August 12, 2023
Objective Data
-
Vital Signs:
T. Max in 24 hrs
08/11/23
23:35
Temp 97.4 F
Vital Signs
Temp Pulse Resp BP Pulse Ox
97.4 F 72 18 112/61 92
08/11/23 23:35 08/11/23 23:35 08/11/23 23:35 08/11/23 23:35 08/11/23 23:35
I&O
08/11/23 08/12/23 08/13/23
06:59 06:59 06:59
Intake Total 300 / 300 600 / 600
Output Total 30 / 30 200 / 200
Balance 270 / 270 400 / 400
Review of Systems
-
History Source: Patient
All other systems: Not reviewed unless documented
Constitutional: Reports No Symptoms; Denies Fever
EENT: Reports No Symptoms Reported
Respiratory: Reports No Symptoms; Denies Cough, Trouble Breathing or Wheezing
Cardiac: Reports No Symptoms; Denies Palpitations or Syncope
Abdomen/GI: Reports No Symptoms; Denies Abdominal Pain, Nausea, Vomiting or Diarrhea
Genitourinary: Reports No Symptoms
Musculoskeletal: Reports Muscle Pain; Denies Joint Pain, Edema or Muscle Weakness
Neuro: Reports No Symptoms; Denies Dizzy, Headache, Weakness or Ataxia
Physical Exam
-
General: Well Developed, No Apparent Distress and Comfortable
HEENT: Normocephalic, Atraumatic and Moist Mucous Membranes
Respiratory: Clear to Auscultation; Negative Wheezes, Rhonchi or Crackles
Cardiac: Regular Rhythm and S1/S2; Negative Murmur, Rub or Gallop
GI: Soft, Nontender, Nondistended and Normal Bowel Sounds; Negative Organomegaly
Rectal: Deferred by Provider
Musculoskeletal: No Clubbing, No Cyanosis, No Edema and Other (Left lateral thigh pain)
Skin: Warm; Negative Rash
Neuro: Awake, Alert, Oriented, AO x 3 and Nonfocal/Grossly Intact
Psych: Calm
Data Reviewed
-
CT Scan: Report Reviewed by me and Discussed with Physician
MRI: Report Reviewed by me, Discussed with Physician and Other (Brain and lumbar spine MRI)
Labs: Labs Reviewed by me and Discussed with Physician
Old Records: Reviewed
[2023-08-12] MEDS: LIPITOR 10 MG PO (08:45)
[2023-08-12] MEDS: WELLBUTRIN SR (12 hour sustained release) 450 MG PO (08:45)
[2023-08-12] MEDS: DIOVAN 160 MG PO (08:45)
[2023-08-12] MEDS: CYMBALTA DELAYED RELEASE 60 MG PO (08:46)
[2023-08-12] MEDS: TYLENOL 650 MG PO (08:46)
[2023-08-12] MEDS: VITAMIN B-12 1000 MCG PO (08:46)
[2023-08-12 09:52] VITALS: BP 133/88; PULSE 81
--- NOTE | 2023-08-12 09:54 | CM ---
Addendum entered by Joanna Yan 08/12/23 11:34:
Patient updated and requested CM to call Janell at [place] [phone] [phone] update provided.
Addendum entered by Joanna Yan 08/12/23 11:21:
Please call report to [phone] 112/ fax [phone]. CM updated and physician. CM will complete transportation forms
Original Note:
Patient accepted at [facility] and [facility] in admissions. Patient chose [place], CM updated admissions and kumar from [facility] pending auth. Patient for transfer to snf. CM will continue to follow for discharge planning
needs.
Plan; SNF; pending auth. may need ambulance.
[2023-08-12 14:55] VITALS: BP 132/80
== END 2023-08-12 15:31 ==
LOC: 3 WEST ACU 17:43
PROVIDERS: Nurse Practitioner; Student in an Organized Health Care Education/Training Program; ADMITTING PHYSICIAN Internal Medicine; CONSULT PHYSICIAN Student in an Organized Health Care Education/Training Program; EMERGENCY PHYSICIAN Emergency Medicine; FAMILY PHYSICIAN Registered Nurse
DX: R26.2 Difficulty in walking, not elsewhere classified (principal); M79.652 Pain in left thigh; M25.552 Pain in left hip; M79.605 Pain in left leg; M54.50 Low back pain, unspecified; R53.1 Weakness; F02.80 Dementia in other diseases classified elsewhere, unspecified severity, without behavioral disturbance, psychotic disturbance, mood disturbance, and anxiety; I10 Essential (primary) hypertension; G89.29 Other chronic pain; F43.10 Post-traumatic stress disorder, unspecified; G31.09 Other frontotemporal neurocognitive disorder; G93.89 Other specified disorders of brain; E78.00 Pure hypercholesterolemia, unspecified; R41.0 Disorientation, unspecified; R07.9 Chest pain, unspecified; E53.8 Deficiency of other specified B group vitamins; E78.5 Hyperlipidemia, unspecified; E78.2 Mixed hyperlipidemia; G31.9 Degenerative disease of nervous system, unspecified; M51.36 Other intervertebral disc degeneration, lumbar region; M50.30 Other cervical disc degeneration, unspecified cervical region; M48.061 Spinal stenosis, lumbar region without neurogenic claudication; Z66 Do not resuscitate; Z90.79 Acquired absence of other genital organ(s); Z85.46 Personal history of malignant neoplasm of prostate; Z79.01 Long term (current) use of anticoagulants; Z86.73 Personal history of transient ischemic attack (TIA), and cerebral infarction without residual deficits; Z82.3 Family history of stroke; Z82.0 Family history of epilepsy and other diseases of the nervous system
CPT/HCPCS: 70450; 70553; 72158; 72192; 73502; 80048; 80053; 81003; 81015; 82607; 82746; 84443; 85025; 85027; 86803; 87040; 87086; 93005; 97116; 97162; 97166; 97530; 99285; A9575; G0378

== ENCOUNTER 2023-09-01 21:50 | Emergency (ER) | payer MEDICARE, OTHER, SELFPAY ==
[2023-09-01 21:55] VITALS: BP 114/97
--- NOTE | 2023-09-01 22:31 | ED.GENMED ---
History of Present Illness
General
Chief Complaint: Fall
Source: patient, ambulance crew and other (Nursing )
Exam Limitations: dementia
Time Seen by Provider: 09/01/23 22:01
History of Present Illness
History of Present Illness:
This is a 78 year old male that comes in by ambulance with c/o fall. States that he was just reaching for his Cell phone and he fell out of bed. States that the nurses there are ganging up on him. Told that EMS states that he has fell more the just
the one time. Patient denies any fever, chills, chest pain, SOB, abd pain, nausea, vomiting, diarrhea, headache, dizziness, urinary burning.
Past History
Past History
ED Past Medical History: Cancer (Prostate), HTN, Hypercholesterolemia, Psychiatric (PTSD, Anxiety, Depression) and Other (Dementia, parkinson's)
ED Past Surgical History: Orthopedic (knee surgery) and Urological (Prostatectomy)
Social History
Tobacco: Non-smoker
Alcohol: None
Personal:
Living: snf
Review of Systems
Review of Systems
All Other Systems: ROS reviewed and negative except as documented in HPI and ROS
Constitutional: Reports no symptoms; Denies fever or chills
EENT: Reports no symptoms
Respiratory: Reports no symptoms; Denies cough or trouble breathing
Cardiac: Reports no symptoms; Denies chest pain
ABD/GI: Reports no symptoms; Denies abdominal pain, nausea, vomiting or diarrhea
: Reports no symptoms; Denies dysuria, frequency or urgency
Musculoskeletal: Reports no symptoms
Skin: Reports no symptoms
Neurological: Reports no symptoms; Denies dizzy or headache
Psychiatric: Reports no symptoms
Phy Exam
General Physical Exam
General Presentation: no apparent distress
General age: appears stated age
General Skin: warm and dry
General Habitus: elderly
General Mental: usual mental status
General Hydration: dry mucous membranes
ENT Exam
ENT Exam: TM's normal, pharynx normal and neck supple
Eye Exam
Eye Exam: EOMI
Cardiovascular Exam
Cardiovascular Exam: regular rate/rhythm, no edema, no murmur and normal peripheral pulses
Pulmonary Exam
Pulmonary Exam: lungs clear, no respiratory distress, no rales, chest non tender, no crackles, no rhonchi, no wheezing and no cough
Gastrointestinal Exam
Gastrointestinal Exam: normal bowel sounds, non tender, soft, no organomegaly, no pulsatile mass and non distended
Musculoskeletal Exam
Musculoskeletal Exam: full ROM, no edema and other (Negative for any cervical neck tenderness or spinal tenderness. Patient can cross his arm. abduct, Flex elbows, move fingers and wrist. Negative for discomfort with flexion of the knee's,
Inversion or eversion. )
Skin Exam
Skin Exam: normal color, warm/dry and no petechia
Psychiatric Exam
Psychiatric Exam: normal mood/affect
Course
Orders/Labs/Results
Orders:
Orders
09/01/23 22:30
CT Head W/o Iv Contrast Urgent
Comment:
Reason For Exam: fall
Urinalysis Reflex To Culture Urgent
Date Specimen was Collected: 09/02/23
Time Specimen was Collected: 02:18
0.9% Sodium Chloride 500 ml [Nss] 500 ml IV BOLUS
09/01/23 22:36
Basic Metabolic Panel Urgent
Complete Blood Count/With Diff Urgent
09/01/23 22:38
Electrocardiogram (*1) Urgent
Reason for Study: Other
Other Reason for Exam: falls
EKG- Treatment ONCE
09/02/23 02:09
CT Head W/o Iv Contrast Urgent
Comment:
Reason For Exam: fALL ON FLOOR
09/02/23 02:20
Urine Microscopic Reflex Cult Urgent
Abnormal Lab Results
09/01/23 09/02/23
22:36 02:20
RBC 4.42 L 10^6/uL
(4.70-6.10)
MCV 94.3 H fL
(80.0-94.0)
MCH 32.6 H pg
(27.0-31.0)
Absolute Monos (auto) 0.8 H 10^3/uL
(0.1-0.6)
Lymphocytes % 20.2 L %
(20.5-51.1)
Monocytes % 10.6 H %
(1.7-9.3)
Glucose 101 H mg/dl
(70-99)
Urine Ketones Trace A
(Negative)
Urine Bilirubin 1+ A
(Negative)
Urine Urobilinogen 2+ A
(Neg - 1+)
Leukocyte Esterase Rfl Trace A
(Negative)
Urine Bacteria (Reflex) Few A
(Negative)
09/01/23 22:36
09/01/23 22:36
Urine negative for infection. Anemia, Glucose nonfasting,
Vital Signs
Initial and Last Documented VS:
Initial Vital Signs
Temp Pulse Resp BP Pulse Ox
98.7 F 85 18 114/97 95
09/01/23 21:55 09/01/23 21:55 09/01/23 21:55 09/01/23 21:55 09/01/23 21:55
Last Documented Vital Signs
Temp Pulse Resp BP Pulse Ox
98.7 F 85 18 114/97 95
09/01/23 21:55 09/01/23 21:55 09/01/23 21:55 09/01/23 21:55 09/01/23 21:55
MDM/Problems Addressed
Differential Diagnosis Includes:
Frequent falls, Parkinson's, UTI
MDM/Problems Addressed:
This is a 78 year old male that comes in with c/o fall. Patient states that the nurses are ganging up on him. States that he was just reaching for his cell phone and he fell out of bed. Told by EMS that patient has fallen several times.
Will get labs, Urine and given IV fluids. Will CT head.
Back into see patient. Explained that his blood work is normal along with the CT of the head is normal. Awaiting urine and if negative will discharge patient back to the snf.
Patient had a Bed alarm and he got OOB and fell on the floor. Patient wa able to get up with help. Will rescan patient head.
Chronic conditions affecting care:
parkinson's
Acute Exacerbation and/or Progression of Chronic Illness:
Parkinson's
*Radiology
Radiology exam reviewed: radiology read reviewed (CT head-Compared to 08/09/2023, no significant interval change. No evidence of acute intracranial abnormality. No evidence of hemorrhage or mass. Mild periventricular and subcortical regions of low
attenuation likely representing chronic small vessel ischemic disease. Ventricles and sulci are ) and other (CT cont- prominent compatible with mild atrophy. Bones are unremarkable. sinuses are unremarkable. CT head-Compared to 12:01am no
significant interval change. No evidence of acute intracranial abnormality. No evidence of hemorrhage or mass. )
*Pulse Oximetry
Patient hypoxic: no
*Computer Game Designer Interpretation
Rate: Computer Game Designer- N/A
*Critical Care Note
Total Time (30-74mins, 75-104mins- exclusive of procedures): Not Applicable
ED Attending Note
-
Portions of this chart may have been created with voice recognition software.� Occasional wrong word or��sound alike� substitutions may have occurred due to the inherent limitations of voice recognition software.
Discharge Plan
Departure
Patient Disposition: Longterm/SNF
Date of Disposition: 09/02/23
Time of Disposition: 03:02
Patient with high blood pressure during this ER visit?: No
Condition: Good
Covid-19: Not Applicable
Discharge Problem:
Accidental fall, ambulatory dysfunction due to Parkinsons
Instructions: Parkinson disease, Preventing falls in adults
Prescriptions:
No Action
atorvastatin 10 mg tablet
10 mg PO DAILY
bupropion HCl [Wellbutrin SR] 150 mg Tablet Sustained-Release 12 Hr
450 mg PO DAILY
trazodone 50 mg Tablet
150 mg PO HS
cyanocobalamin (vitamin B-12) 1,000 mcg Tablet
1,000 mcg PO DAILY
valsartan 320 mg Tablet
160 mg PO DAILY
duloxetine [Cymbalta] 60 mg Capsule,Delayed Release(Dr/Ec)
60 mg PO DAILY
acetaminophen 325 mg Tablet
650 mg PO Q6H Qty: 0 0RF
ibuprofen 400 mg Tablet
400 mg PO Q8HPRN PRN (Reason: leg pain) Qty: 0 0RF
Referrals:
Diana Baker CRNP [Family Provider] - Call in 1-3 days for appt
Activity Restrictions/Additional Instructions:
As discussed, patient blood work shows that he is slightly anemic. Otherwise his labs are normal. His urine is negative for infection and he has had two 2 CT of the head as patient also got OOB here and fall on the floor in the ER. Both are normal.
Please follow up with the family doctor. IF YOU HAVE ANY OTHER CONCERNS PLEASE RETURN TO THE EMERGENCY ROOM.
Interventions
Interventions:
*Risk Screen - Suicide Last Done: 09/01/23 21:55
*General Assessment Last Done: 09/01/23 21:55
*Neglect/Abuse Screening Last Done: 09/01/23 21:55
ED- Fall Risk Assessment Last Done: 09/01/23 22:39
ED-Musculoskeletal Assessment Last Done: 09/01/23 22:39
ED- Neurological Assessment Last Done: 09/01/23 22:39
ED-Skin Assessment Last Done: 09/01/23 22:39
Discharge Date and Time
Print Language: [id number]
[2023-09-01] MEDS: NSS 500 IV (22:35)
[2023-09-01 22:36] VITALS: BMI 31.3
[2023-09-01 22:42] LABS: % Basophils 0.5 % (0-2); % Eosinophils 3.7 % (0-6); % Immature Granulocytes 0.3 % (0-0.5); % Lymphocytes 20.2 % (20.5-51.1); % Monocytes 10.6 % (1.7-9.3); % Neutrophils 64.7 % (42.2-75.2); Absolute Eosinophils 0.3 10^3/uL (0-0.7); Absolute Lymphocytes 1.6 10^3/uL (1.2-3.4); Absolute Monocytes 0.8 10^3/uL (0.1-0.6); Hematocrit 41.7 % (39.0-52.0); Hemoglobin 14.4 g/dL (13.0-18.0); Mean Corp Hgb Conc. 34.5 g/dL (33.0-37.0); Mean Corpuscular Hgb 32.6 pg (27.0-31.0); Mean Corpuscular Volume 94.3 fL (80.0-94.0); Mean Platelet Volume 9.7 fL (7.4-10.4); Nucleated Red Blood Cells % 0 % (-); Platelet Count 225 10^3/uL (130-400); Red Blood Cell Count 4.42 10^6/uL (4.70-6.10); Red Cell Dist. Width 12.5 % (11.5-14.5); White Blood Cell Count 7.7 10^3/uL (4.8-10.8)
[2023-09-01 23:03] LABS: Blood Urea Nitrogen 17 mg/dl (9-20); Calcium 8.6 mg/dl (8.4-10.2); Carbon Dioxide 27 mmol/L (22-30); Chloride 104 mmol/L (98-107); Estimated Creatinine Clearance 54 ml/min; Glucose 101 mg/dl (70-99); Sodium 135 mmol/L (135-145); eGFR 56.58
[2023-09-02 00:23] VITALS: BP 133/109
[2023-09-02 01:00] VITALS: BP 132/93
--- NOTE | 2023-09-02 02:10 | EDRN ---
Pt on bed alarm with both side rails up and high fall risk. Bed alarm rang, RN ran into room and found pt ambulating at the end of the stretcher. Pt had witnessed fall. Provider made aware. Pt assisted back onto stretcher. Both side rails up, bed
alarm intact, high fall risk maintained, pt moved to bed 37 closer to nurses station. Pt reports no complaints. Ct head obtained per VISITOR INFORMATION ASSISTANT Seipt order. Pt stable for discharge per provider. VSS. Awaiting transport.
[2023-09-02 02:26] LABS: Urine Albumin Trace (Neg - Trace); Urine Bilirubin 1+ (Negative); Urine Character Clear (Clear); Urine Color Yellow; Urine Glucose Negative (Negative); Urine Ketone Trace (Negative); Urine Leukocyte Trace (Negative); Urine Nitrite Negative (Negative); Urine Occult Blood Negative (Negative); Urine Specific Gravity 1.025 (<1.030); Urine Urobilinogen 2+ (Neg - 1+)
[2023-09-02 02:41] LABS: Urine Mucus Few; Urine Squamous Cell 0-2 /LPF (Few)
[2023-09-02 02:42] LABS: Urine Bacteria Few (Negative); Urine Calcium Oxalate Crystals Seen; Urine Red Blood Cell 0-2 /HPF (0-2); Urine Uric Acid Crystals Seen; Urine White Cell 0-2 /HPF (0-5)
[2023-09-02 03:59] VITALS: BP 120/68
== END 2023-09-02 04:24 ==
LOC: EMR 21:50
PROVIDERS: Clinical Nurse Specialist Family Health; EMERGENCY PHYSICIAN Emergency Medicine; FAMILY PHYSICIAN Nurse Practitioner Family
DX: R26.9 Unspecified abnormalities of gait and mobility (principal); G20.A1 Parkinson's disease without dyskinesia, without mention of fluctuations; W19.XXXA Unspecified fall, initial encounter; F02.80 Dementia in other diseases classified elsewhere, unspecified severity, without behavioral disturbance, psychotic disturbance, mood disturbance, and anxiety; I10 Essential (primary) hypertension; E78.00 Pure hypercholesterolemia, unspecified; F43.10 Post-traumatic stress disorder, unspecified; F41.8 Other specified anxiety disorders
CPT/HCPCS: 99283; 96360; 70450; 80048; 81003; 81015; 85025; 93005